=== PATIENT | female | born 1990 | race Native Hawaiian/Other Pacific Islander ===

== ENCOUNTER 2017-04-30 17:06 | Emergency (ER) | payer OTHER ==
[~2017-04-30] VITALS: Ht 170.2 cm; Wt 73.5 kg
[~2017-04-30 17:06] MED LIST: [UNRECOGNIZED DRUG - OTHER] PO
[2017-04-30 17:15] VITALS: TEMP 97.8
[2017-04-30 17:40] VITALS: BP 112/80
== END 2017-04-30 17:40 | disposition home or self-care (01) ==
LOC: ED 17:06
DX: Z51.89 Encounter for other specified aftercare (principal)